=== PATIENT | male | born 1945 | race Caucasian/White ===

== ENCOUNTER 2017-04-10 13:03 | Observation (INO) | payer MEDICARE, MEDICAID ==
[~2017-04-10] VITALS: Ht 180.3 cm; Wt 80.0 kg
[2017-04-10] VITALS (8 sets, daily range): BP systolic 117–186; BP diastolic 58–86; PULSE 45–63; RESP 18–24; TEMP 97.4–98.2; O2SAT 97–100
[~2017-04-10 13:03] MED LIST: ALBU1AER INH; AMIT50 PO; AMLO5 PO; ASPI81 PO; BUPR-197 PO; CLOP75 PO; DULE100A PO; LOSA25 PO; METO50TA PO; NEUR600T PO; PERC10TA27 PO; RANI150T PO; RISP1TAB2 PO; SIMV20TA PO
[2017-04-10] MEDS ORDERED: SODIUM CHLORIDE 0.9% FLUSH 10 ML FLUSH IVF PRN (13:30)
--- NOTE | 2017-04-10 13:30 | PD ---
HPI Chief Complaint: Cardiac Complaint Time Seen by Provider: 13:09 Travel History International Travel<30 days: No Contact w/Intl Traveler<30days: No Traveled to known affect area: No History of Present Illness HPI 72-year-old male presents to the emergency department for syncope. Patient was at Dr. Hidalgo's office being seen for syncope when he had a syncopal episode in the office. He was referred to the emergency department. His is at bedside who states he has been having multiple syncopal episodes every day. This is an issue for approximately a year. He was last admitted in February 2016 for syncope. He had a brain MRI done which showed no acute intracranial abnormality at that visit. Head CT showed no acute abnormality. Patient also had echo which showed ejection fraction of 50%. He is found to be bradycardic and Dr. Oswald Serrano's office with a heart rate of 41. The patient states this is not typical for his heart rate. At this time, he has no complaints. No headache. No fevers or chills. No chest pain. No shortness of breath. No abdominal pain. Nausea, vomiting, diarrhea. PFSH Past Medical History Arthritis: No Blood Disorders: No Bipolar Disorder: Yes Cancer: No Cardiac Catheterization: Yes Cardiovascular Problems: Yes High Cholesterol: Yes Chest Pain: Yes Congestive Heart Failure: Yes Coronary Artery Disease: Yes Diabetes: No Endocrine: No Gastrointestinal Disorders: No GERD: Yes Genitourinary: No Hypertension: Yes Immune Disorder: No Implanted Vascular Access Dvce: No Musculoskeletal: Yes Neurologic: No Psychiatric: Yes (BIPOLAR) Reproductive: No Respiratory: No Myocardial Infarction: Yes Tetanus Vaccination: < 5 Years Influenza Vaccination: Yes Past Surgical History Abdominal Surgery: Yes (APPENDECTOMY) AICD: No Appendectomy: Yes Arteriovenous Shunt: No Body Medical Devices: STERNAL WIRES Cardiac Surgery: Yes (CABG 3 VESSEL, QUADR. BYPASS) Coronary Artery Bypass Graft: Yes (3 VESSEL) Ear Surgery: No Endocrine Surgery: No Eye Surgery: No Genitourinary Surgery: No Gynecologic Surgery: No Insulin Pump: No Joint Replacement: No Oral Surgery: Yes Pacemaker: No Other Surgery: Yes Social History Alcohol Use: No Tobacco Use: Yes (1 PPD) Substance Use: Yes (MARIJUANA) Allergies-Medications (Allergen,Severity, Reaction): Coded Allergies: No Known Allergies (Verified , 04/10/17) Reported Meds & Prescriptions Reported Meds & Active Scripts Active Active Prescriptions or Reported Medications Unobtainable Review of Systems Except as stated in HPI: all other systems reviewed are Neg Physical Exam Narrative GENERAL: Well-nourished, well-developed male patient, afebrile. SKIN: Focused skin assessment warm/dry. HEAD: Normocephalic. Atraumatic. EYES: No scleral icterus. No injection or drainage. NECK: Supple, trachea midline. No JVD or lymphadenopathy. CARDIOVASCULAR: Regular rate without murmurs, gallops, or rubs. Bilateral radial and pedal pulses are 2+. Patient is bradycardic with heart rate in the 40s. RESPIRATORY: Breath sounds equal bilaterally. No accessory muscle use. Lungs sounds are clear to auscultation. GASTROINTESTINAL: Abdomen soft, non-tender, nondistended. MUSCULOSKELETAL: No cyanosis, or edema. Bilateral upper and lower extremity strength 5/5. All extremities are neurovascularly intact. BACK: Nontender without obvious deformity. No CVA tenderness. Data Data Last Documented VS Vital Signs Date Time Temp Pulse Resp B/P (MAP) Pulse Ox O2 Delivery O2 Flow Rate FiO2 04/10/17 13:29 100 Room Air 04/10/17 13:16 45 18 04/10/17 13:06 97.7 Orders Orders Electrocardiogram (04/10/17 ) Electrocardiogram (04/10/17 13:22) Basic Metabolic Panel (Bmp) (04/10/17 13:22) Ckmb (Isoenzyme) Profile (04/10/17 13:22) Complete Blood Count With Diff (04/10/17 13:22) Magnesium (Mg) (04/10/17 13:22) Prothrombin Time / Inr (Pt) (04/10/17 13:22) Act Partial Throm Time (Ptt) (04/10/17 13:22) Troponin I (04/10/17 13:22) Chest, Single Ap (04/10/17 13:22) Ecg Monitoring (04/10/17 13:22) Bilateral Bp Monitoring (04/10/17 13:22) Iv Access Insert/Monitor (04/10/17 13:22) Oximetry (04/10/17 13:22) Oxygen Administration (04/10/17 13:22) Sodium Chloride 0.9% Flush (Ns Flush) (04/10/17 13:30) CKMB (04/10/17 13:25) CKMB% (04/10/17 13:25) Labs Laboratory Tests Test 04/10/17 13:25 White Blood Count 8.7 TH/MM3 Red Blood Count 4.64 MIL/MM3 Hemoglobin 14.2 GM/DL Hematocrit 44.1 % Mean Corpuscular Volume 95.1 FL Mean Corpuscular Hemoglobin 30.6 PG Mean Corpuscular Hemoglobin Concent 32.2 % Red Cell Distribution Width 15.0 % Platelet Count 145 TH/MM3 Mean Platelet Volume 8.8 FL Neutrophils (%) (Auto) 61.6 % Lymphocytes (%) (Auto) 25.0 % Monocytes (%) (Auto) 10.8 % Eosinophils (%) (Auto) 1.9 % Basophils (%) (Auto) 0.7 % Neutrophils # (Auto) 5.3 TH/MM3 Lymphocytes # (Auto) 2.2 TH/MM3 Monocytes # (Auto) 0.9 TH/MM3 Eosinophils # (Auto) 0.2 TH/MM3 Basophils # (Auto) 0.1 TH/MM3 CBC Comment DIFF FINAL Differential Comment Prothrombin Time 10.8 SEC Prothromb Time International Ratio 1.0 RATIO Activated Partial Thromboplast Time 30.3 SEC Blood Urea Nitrogen 14 MG/DL Creatinine 1.33 MG/DL Random Glucose 101 MG/DL Calcium Level 8.7 MG/DL Magnesium Level 2.4 MG/DL Sodium Level 137 MEQ/L Potassium Level 5.4 MEQ/L Chloride Level 109 MEQ/L Carbon Dioxide Level 22.2 MEQ/L Anion Gap 6 MEQ/L Estimat Glomerular Filtration Rate 53 ML/MIN Total Creatine Kinase 111 U/L Creatine Kinase MB 1.4 NG/ML Troponin I LESS THAN 0.02 NG/ML MDM Medical Decision Making Medical Screen Exam Complete: Yes Emergency Medical Condition: Yes Medical Record Reviewed: Yes Interpretation(s) Last Impressions Chest X-Ray 04/10/17 1322 Signed Impressions: Service Date/Time: Monday, April 10, 2017 13:40 - CONCLUSION: 1. No acute cardiopulmonary disease. Dariel Oropeza MD Differential Diagnosis Cardiac arrhythmia versus electrolytes abnormality versus ACS Narrative Course 72-year-old male presents to the emergency department sent by Dr. Hidalgo's office for syncope. His heart rate is sounds being the 40s at this time. He has no complaints. EKG shows sinus bradycardia, heart rate 44. He does have T- wave inversion in lead 1, 2, V4, V5 V6 with ST depression in V4, V5, V6. This does appear unchanged since previous EKG. CBC, BMP, CK, troponin, magnesium, PTT, PT/INR, chest x-ray are ordered and pending. CBC shows no acute abnormality. BMP shows hyperkalemia 5.4, but moderate hemolysis noted, creatinine 1.33. CK is 111. Troponin is less than 0.02. Magnesium is 2.4. Coags show no acute abnormality. Chest x-ray shows no acute cardiopulmonary disease. Dr. Bah accepted admission. Diagnosis Primary Impression: Syncope Qualified Codes: R55 - Syncope and collapse Additional Impression: Bradycardia Admitting Information Admitting Physician Requests: Observation Scripts Unable to Obtain Active Prescriptions or Reported Meds Sherice Colindres Apr 10, 2017 13:30
[2017-04-10 13:40] LABS: AUTOMATED NEUTROPHIL # 5.3 TH/MM3 (1.8-7.7); BASOPHIL # 0.1 TH/MM3 (0-0.2); BASOPHIL % 0.7 % (0.0-2.0); EOSINOPHIL # 0.2 TH/MM3 (0-0.4); EOSINOPHIL % 1.9 % (0.0-4.0); HEMATOCRIT 44.1 % (39.0-51.0); HEMO FLAGS DIFF FINAL; LYMPHOCYTE # 2.2 TH/MM3 (1.0-4.8); MEAN CELL VOLUME 95.1 FL (80.0-100.0); MEAN CORPUSCULAR HEMOGLOBIN 30.6 PG (27.0-34.0); MEAN CORPUSCULAR HGB CONC 32.2 % (32.0-36.0); MONO % 10.8 % (0.0-8.0); NEUT % 61.6 % (16.0-70.0); PLATELET COUNT 145 TH/MM3 (150-450); RED BLOOD COUNT 4.64 MIL/MM3 (4.50-5.90); WHITE BLOOD COUNT 8.7 TH/MM3 (4.0-11.0)
[2017-04-10 13:56] LABS: PROTHROMBIN TIME - PATIENT 10.8 SEC (9.8-11.6)
[2017-04-10 13:59] LABS: APTT (PATIENT) 30.3 SEC (24.3-30.1)
--- NOTE | 2017-04-10 14:05 | RADRPT ---
EXAM DATE/TIME: 04/10/2017 13:40 [facility] COMPARISON: CHEST SINGLE AP, February 28, 2016, 12:54. INDICATIONS : Syncopal episode today. MEDICAL HISTORY : Congestive heart failure. Hypertension. SURGICAL HISTORY : CABG. Discectomy, lumbar. Appendectomy. ENCOUNTER: Initial ACUITY: 1 day PAIN SCORE: 0/10 LOCATION: Bilateral chest FINDINGS: Postsurgical features of prior median sternotomy. Lungs are clear without significant focal pleural o r parenchymal opacities. Cardiomediastinal contours are within normal limits. Bony thorax is intact. CONCLUSION: 1. No acute cardiopulmonary disease. Dariel Oropeza MD on April 10, 2017 at 14:03 Board Certified Radiologist. This report was verified electronically.
[2017-04-10 14:07] LABS: ANION GAP 6 MEQ/L (5-15); BICARBONATE 22.2 MEQ/L (21.0-32.0); BLOOD UREA NITROGEN 14 MG/DL (7-18); CHLORIDE 109 MEQ/L (98-107); CREATINE KINASE 111 U/L (39-308); GLOMERULAR FILTRATION RATE 53 ML/MIN (>89); MAGNESIUM 2.4 MG/DL (1.5-2.5); POTASSIUM 5.4 MEQ/L (3.5-5.1); SODIUM (NA) 137 MEQ/L (136-145)
[2017-04-10 14:20] LABS: CKMB 1.4 NG/ML (0.5-3.6)
--- NOTE | 2017-04-10 14:37 | PD ---
Physical Exam Narrative GENERAL: Well-nourished, well-developed patient. SKIN: Warm and dry. HEAD: Normocephalic and atraumatic. EYES: No injection or drainage. ENT: No nasal drainage noted. NECK: Supple, trachea midline. CARDIOVASCULAR: Bradycardic rate and regular rhythm RESPIRATORY: No increased effort. No accessory muscle use. NEUROLOGICAL: Awake and alert. Moves all extremities. Normal speech. Data Data Last Documented VS Vital Signs Date Time Temp Pulse Resp B/P (MAP) Pulse Ox O2 Delivery O2 Flow Rate FiO2 04/10/17 13:29 100 Room Air 04/10/17 13:16 45 18 04/10/17 13:06 97.7 Orders Orders Electrocardiogram (04/10/17 ) Electrocardiogram (04/10/17 13:22) Basic Metabolic Panel (Bmp) (04/10/17 13:22) Ckmb (Isoenzyme) Profile (04/10/17 13:22) Complete Blood Count With Diff (04/10/17 13:22) Magnesium (Mg) (04/10/17 13:22) Prothrombin Time / Inr (Pt) (04/10/17 13:22) Act Partial Throm Time (Ptt) (04/10/17 13:22) Troponin I (04/10/17 13:22) Chest, Single Ap (04/10/17 13:22) Ecg Monitoring (04/10/17 13:22) Bilateral Bp Monitoring (04/10/17 13:22) Iv Access Insert/Monitor (04/10/17 13:22) Oximetry (04/10/17 13:22) Oxygen Administration (04/10/17 13:22) Sodium Chloride 0.9% Flush (Ns Flush) (04/10/17 13:30) CKMB (04/10/17 13:25) CKMB% (04/10/17 13:25) Labs Laboratory Tests Test 04/10/17 13:25 White Blood Count 8.7 TH/MM3 Red Blood Count 4.64 MIL/MM3 Hemoglobin 14.2 GM/DL Hematocrit 44.1 % Mean Corpuscular Volume 95.1 FL Mean Corpuscular Hemoglobin 30.6 PG Mean Corpuscular Hemoglobin Concent 32.2 % Red Cell Distribution Width 15.0 % Platelet Count 145 TH/MM3 Mean Platelet Volume 8.8 FL Neutrophils (%) (Auto) 61.6 % Lymphocytes (%) (Auto) 25.0 % Monocytes (%) (Auto) 10.8 % Eosinophils (%) (Auto) 1.9 % Basophils (%) (Auto) 0.7 % Neutrophils # (Auto) 5.3 TH/MM3 Lymphocytes # (Auto) 2.2 TH/MM3 Monocytes # (Auto) 0.9 TH/MM3 Eosinophils # (Auto) 0.2 TH/MM3 Basophils # (Auto) 0.1 TH/MM3 CBC Comment DIFF FINAL Differential Comment Prothrombin Time 10.8 SEC Prothromb Time International Ratio 1.0 RATIO Activated Partial Thromboplast Time 30.3 SEC Blood Urea Nitrogen 14 MG/DL Creatinine 1.33 MG/DL Random Glucose 101 MG/DL Calcium Level 8.7 MG/DL Magnesium Level 2.4 MG/DL Sodium Level 137 MEQ/L Potassium Level 5.4 MEQ/L Chloride Level 109 MEQ/L Carbon Dioxide Level 22.2 MEQ/L Anion Gap 6 MEQ/L Estimat Glomerular Filtration Rate 53 ML/MIN Total Creatine Kinase 111 U/L Creatine Kinase MB 1.4 NG/ML Troponin I LESS THAN 0.02 NG/ML [facility] Supervised Visit with LEI: Yes Interpretation(s) CBC & BMP Diagram 04/10/17 13:25 Calcium Level 8.7, Magnesium Level 2.4 Last 24 hours Impressions Chest X-Ray 04/10/17 1322 Signed Impressions: Service Date/Time: Saturday, April 10, 2017 13:40 - CONCLUSION: 1. No acute cardiopulmonary disease. Dariel Oropeza MD EKG shows sinus bradycardia without STEMI criteria Narrative Course I, Dr. lowe, have reviewed the advance practice practitioner's documentation and am in agreement, met with the patient face to face, made the diagnosis, and the medical decision making was done by me. *My assessment and Findings: 72-year-old male status post syncopal event. He is bradycardic here in the 40s but without hypotension. He is on metoprolol so this will need to be held and he'll need to be monitored in the hospital overnight to make sure that this improves and he does not develop other symptoms. He has had syncope before but usually not this bradycardic Diagnosis Primary Impression: Syncope Qualified Codes: R55 - Syncope and collapse Scripts Unable to Obtain Active Prescriptions or Reported Meds Angie Lowe MD Apr 10, 2017 14:37
--- NOTE | 2017-04-10 17:38 | HHI.HP ---
HPI Service [facility] Primary Care Physician Aman Barr, DO Admission Diagnosis syncope, bradycardia Diagnoses: Chief Complaint: SYNCOPE Travel History International Travel<30 Days: No Contact w/Intl Traveler <30 Da: No Traveled to Known Affected Are: No History of Present Illness This a 72-year-old white male with significant past medical history of coronary artery disease, hypertension, hyperlipidemia, COPD. Patient presented to the emergency room for evaluation of syncope. Patient was last admitted to this facility February 2016 for the same, at that time he underwent neuro workup that did not reveal any acute findings, no seizures. He had EEG and echocardiogram. Echo showed EF of 50%. Patient is not a good historian, and indicates that his mind is not working as well. His is having the room and she is providing the rest of the information. They both endorse that patient has been having syncopal episodes for approximately a month, indicates maybe 4-5 a day. Most of the episodes he's had he's been sitting down therefore he hasn't sustained any injuries. Denies any preceding symptoms, indicates he just passes out. There is no loss of bowel or bladder function. After this episode , he feels tired and occasionally fluttering of the chest. States that episodes have been witnessed by Dr. Barr as well as Dr. Quiñones. He went into see Dr. Quiñones approximately a week ago and after he witnessed an episode, referred him to see a circulation clerk. Today while he was at Dr. Hidalgo's office for evaluation he had a syncopal episode and was noted bradycardic with a heart rate of 41. Patient was sent to the emergency room for evaluation. Patient denies any chest pain at this time, he has chronic shortness of breath and wheezing from COPD. EKG completed in the emergency room showed bradycardia with heart rate of 44. CBC was unremarkable. BMP remarkable for hyperkalemia, potassium 5.4. Creatinine 1.33. Troponin negative. Magnesium 2.4. Chest x- ray did not reveal any acute findings. His blood pressure is noted elevated in the 170s although initially was 117/58. Patient denies any fever, no chills. At this time his only complaint is of a headache. Patient is admitted for further evaluation and treatment. Review of Systems ROS Limitations: Poor Historian Constitutional: DENIES: Diaphoretic episodes, Fatigue, Fever, Weight gain, Weight loss, Chills, Dizziness, Change in appetite, Night Sweats Endocrine: DENIES: Heat/cold intolerance, Polydipsia, Polyuria, Polyphagia Eyes: DENIES: Blurred vision, Diplopia, Eye inflammation, Eye pain, Vision loss , Photosensitivity, Double Vision Ears, nose, mouth, throat: DENIES: Tinnitus, Hearing loss, Vertigo, Nasal discharge, Oral lesions, Throat pain, Hoarseness, Ear Pain, Running Nose, Epistaxis, Sinus Pain, Toothache, Odynophagia Respiratory: COMPLAINS OF: Cough, Wheezing, Sputum production, Shortness of breath, DENIES: Apneas, Snoring, Hemoptysis Cardiovascular: COMPLAINS OF: Syncope (MULTIPLE X 1 MONTH, SOMETIMES 3-4 A DAY ), DENIES: Chest pain, Palpitations, Dyspnea on Exertion, PND, Lower Extremity Edema, Orthopnea, Claudication Gastrointestinal: DENIES: Abdominal pain, Black stools, Bloody stools, Constipation, Diarrhea, Nausea, Vomiting, Difficulty Swallowing, Anorexia Genitourinary: DENIES: Sexual dysfunction, Urinary frequency, Urinary incontinence, Urgency, Hematuria, Dysuria, Nocturia, Penile Discharge, Testicular Pain, Testicular Swelling Musculoskeletal: DENIES: Joint pain, Muscle aches, Stiffness, Joint Swelling, Back pain, Neck pain Integumentary: DENIES: Abnormal pigmentation, Nail changes, Pruritus, Rash Hematologic/lymphatic: DENIES: Bruising, Lymphadenopathy Immunologic/allergic: DENIES: Eczema, Urticaria Neurologic: DENIES: Abnormal gait, Headache, Localized weakness, Paresthesias, Seizures, Speech Problems, Tremor, Poor Balance Psychiatric: DENIES: Anxiety, Confusion, Mood changes, Depression, Hallucinations, Agitation, Suicidal Ideation, Homicidal Ideation, Delusions Past Family Social History Past Medical History CAD Previous admissions for syncope, last time was 2015, had neuro workup. Negative for any seizures. Tobacco abuse COPD GERD Hyperlipidemia CHF Bipolar Hypertension Past Surgical History CABG Appendectomy Oral surgery Reported Medications Reported Meds & Active Scripts Active Active Prescriptions or Reported Medications Unobtainable Allergies: Coded Allergies: No Known Allergies (Verified , 04/10/17) Active Ordered Medications Inpatient Medications Albuterol/ Ipratropium (Duoneb Neb) 1 ampule QID NEB NEB ; Start 04/10/17 at 20 :00; Status UNV Famotidine (Pepcid) 40 mg HS PO ; Start 04/10/17 at 21:00; Status UNV Heparin Sodium (Porcine) (Heparin Inj) 5,000 units Q12HR SQ ; Start 04/10/17 at 21:00; Status UNV Miscellaneous Information 1 DAILY T-DERMAL ; Start 04/11/17 at 09:00; Status UNV Nicotine (Habitrol 7 Mg Patch.24 Hr) 1 patch DAILY T-DERMAL ; Start 04/10/17 at 16:30; Status UNV Sodium Chloride 1,000 ml @ 84 mls/hr [id number] IV ; Start 04/10/17 at 16:30; Status UNV Sodium Chloride (NS Flush) 2 ml UNSCH PRN IVF FLUSH AFTER USING IV ACCESS; Start 04/10/17 at 13:30 Family History Reviewed, noncontributory. Social History Patient lives with , has grown children. Smokes 1 pack a day for 50 years, has been trying to cut down. Smokes marijuana occasionally. No alcohol abuse. Physical Exam Vital Signs Vital Signs Date Time Temp Pulse Resp B/P (MAP) Pulse Ox O2 Delivery O2 Flow Rate FiO2 04/10/17 16:30 54 18 165/71 (102) 97 Room Air 04/10/17 13:29 100 Room Air 04/10/17 13:29 117/58 (77) 139/63 (88) 04/10/17 13:16 45 18 139/63 (88) 100 Room Air 04/10/17 13:13 97 Room Air 04/10/17 13:06 97.7 45 24 117/58 (77) 98 Room Air Physical Exam GENERAL: This is a well-nourished, well-developed patient, in no apparent distress. SKIN: No rashes, ecchymoses or lesions. Cool and dry. HEAD: Atraumatic. Normocephalic. No temporal or scalp tenderness. EYES: Pupils equal round and reactive. Extraocular motions intact. No scleral icterus. No injection or drainage. ENT: Nose without bleeding, purulent drainage or septal hematoma. Throat without erythema, tonsillar hypertrophy or exudate. Uvula midline. Airway patent. NECK: Trachea midline. No JVD or lymphadenopathy. Supple, nontender, no meningeal signs. CARDIOVASCULAR: Regular rate and rhythm without murmurs, gallops, or rubs. RESPIRATORY: Diffuse rhonchi and expiratory wheezes. GASTROINTESTINAL: Abdomen soft, non-tender, nondistended. No hepato-splenomegaly , or palpable masses. No guarding. MUSCULOSKELETAL: Extremities without clubbing, cyanosis, or edema. No joint tenderness, effusion, or edema noted. No calf tenderness. Negative Homans sign bilaterally. NEUROLOGICAL: Awake, alert oriented 3. Forgetful. No focal deficits. Laboratory Laboratory Tests Test 04/10/17 13:25 White Blood Count 8.7 Red Blood Count 4.64 Hemoglobin 14.2 Hematocrit 44.1 Mean Corpuscular Volume 95.1 Mean Corpuscular Hemoglobin 30.6 Mean Corpuscular Hemoglobin Concent 32.2 Red Cell Distribution Width 15.0 Platelet Count 145 Mean Platelet Volume 8.8 Neutrophils (%) (Auto) 61.6 Lymphocytes (%) (Auto) 25.0 Monocytes (%) (Auto) 10.8 Eosinophils (%) (Auto) 1.9 Basophils (%) (Auto) 0.7 Neutrophils # (Auto) 5.3 Lymphocytes # (Auto) 2.2 Monocytes # (Auto) 0.9 Eosinophils # (Auto) 0.2 Basophils # (Auto) 0.1 CBC Comment DIFF FINAL Differential Comment Prothrombin Time 10.8 Prothromb Time International Ratio 1.0 Activated Partial Thromboplast Time 30.3 Blood Urea Nitrogen 14 Creatinine 1.33 Random Glucose 101 Calcium Level 8.7 Magnesium Level 2.4 Sodium Level 137 Potassium Level 5.4 Chloride Level 109 Carbon Dioxide Level 22.2 Anion Gap 6 Estimat Glomerular Filtration Rate 53 Total Creatine Kinase 111 Creatine Kinase MB 1.4 Troponin I LESS THAN 0.02 Result Diagram: 04/10/17 1325 04/10/17 1325 Imaging Last Impressions Chest X-Ray 04/10/17 1322 Signed Impressions: Service Date/Time: Monday, April 10, 2017 13:40 - CONCLUSION: 1. No acute cardiopulmonary disease. MD Hugh Sparrow VTE Risk Assessment Suni VTE Risk Assessment: No/Low Risk (score <= 1) Caprini Risk Assessment Model Point Value = 1 Point Value = 2 Point Value = 3 Point Value = 5 Age 41-60 Minor surgery BMI > 25 kg/m2 Swollen legs Varicose veins or History of unexplained or recurrent spontaneous Oral contraceptives or hormone replacement Sepsis (< 1 month) Serious lung disease, including pneumonia (< 1 month) Abnormal pulmonary function Acute myocardial infarction Congestive heart failure (< 1 month) History of inflammatory bowel disease Medical patient at bed rest Age 61-74 Arthroscopic surgery Major open surgery (> 45 min) Laparoscopic surgery (> 45 min) Malignancy Confined to bed (> 72 hours) Immobilizing plaster cast Central venous access Age >= 75 History of VTE Family history of VTE Factor V Leiden Prothrombin [id number] Lupus anticoagulant Anticardiolipin antibodies Elevated serum homocysteine Heparin-induced thrombocytopenia Other congenital or acquired thrombophilia Stroke (< 1 month) Elective arthroplasty Hip, pelvis, or leg fracture Acute spinal cord injury (< 1 month) Prophylaxis Regimen Total Risk Factor Score Risk Level Prophylaxis Regimen 0-1 Low Early ambulation 2 Moderate Order ONE of the following: *Sequential Compression Device (SCD) *Heparin 5000 units SQ BID 3-4 Higher Order ONE of the following medications: *Heparin 5000 units SQ TID *Enoxaparin/Lovenox 40 mg SQ daily (WT < 150 kg, CrCl > 30 mL/min) *Enoxaparin/Lovenox 30 mg SQ daily (WT < 150 kg, CrCl > 10-29 mL/min) *Enoxaparin/Lovenox 30 mg SQ BID (WT < 150 kg, CrCl > 30 mL/min) AND/OR *Sequential Compression Device (SCD) 5 or more Highest Order ONE of the following medications: *Heparin 5000 units SQ TID (Preferred with Epidurals) *Enoxaparin/Lovenox 40 mg SQ daily (WT < 150 kg, CrCl > 30 mL/min) *Enoxaparin/Lovenox 30 mg SQ daily (WT < 150 kg, CrCl > 10-29 mL/min) *Enoxaparin/Lovenox 30 mg SQ BID (WT < 150 kg, CrCl > 30 mL/min) AND *Sequential Compression Device (SCD) Assessment and Plan Problem List: (1) Syncope ICD Codes: R55 - Syncope and collapse Status: Acute (2) Bradycardia ICD Codes: R00.1 - Bradycardia, unspecified Status: Acute (3) COPD (chronic obstructive pulmonary disease) ICD Codes: J44.9 - Chronic obstructive pulmonary disease, unspecified Status: Chronic (4) CAD (coronary artery disease) ICD Codes: I25.10 - Atherosclerotic heart disease of [place] coronary artery without angina pectoris Status: Chronic (5) Tobacco abuse ICD Codes: Z72.0 - Tobacco use Status: Chronic (6) Hyperkalemia ICD Codes: E87.5 - Hyperkalemia Status: Acute (7) Renal insufficiency ICD Codes: N28.9 - Disorder of kidney and ureter, unspecified Status: Chronic Assessment and Plan Admit to Dr. Bah 72-year-old male admitted with recurrent syncopal episodes, now noted with bradycardia. Symptomatic bradycardia Recurrent syncope -Continuous cardiac telemetry -Consult cardiology for evaluation -We'll hold any beta blockers, at this time we don't have his home medication list to review. -Continue with cautious hydration Hypotension initially, now blood pressure trending up. -Continue to monitor blood pressure closely, will not initiate any medications at this time. COPD Tobacco abuse -Tobacco abuse counseling, patient agreeable with nicotine patch -DuoNeb's 4 times a day Hyperkalemia Renal insufficiency -Repeat BMP in the morning -Continue with cautious hydration Coronary artery disease History of CABG -Continuous cardiac telemetry -Cardiology consultation Nursing is to complete medication reconciliation Pepcid for GI prophylaxis Heparin for DVT prophylaxis Plan of care has been discussed with the patient and his , RN and attending. Further management of the patient will be dependent on the hospital course This patient was seen by myself and Dr. Bah, this consultation is written on his behalf Problem Qualifiers (1) Syncope: Qualified Codes: R55 - Syncope and collapse (2) COPD (chronic obstructive pulmonary disease): Qualified Codes: J44.9 - Chronic obstructive pulmonary disease, unspecified (3) CAD (coronary artery disease): Qualified Codes: I25.10 - Atherosclerotic heart disease of [place] coronary artery without angina pectoris Neeru eNwman Apr 10, 2017 17:38
[2017-04-10] MEDS: SODIUM CHLOR 0.9% 1000 ML INJ 1,000 ML IV SCH (18:19)
[2017-04-10] MEDS: NICOTINE 7 MG/24 HR PATCH T-DERMAL SCH (18:20)
[2017-04-10] MEDS ORDERED: DOXE25CA2 PO (18:40)
[2017-04-10] MEDS ORDERED: MONT10TA4 PO (18:40)
[2017-04-10] MEDS ORDERED: OMEP40CA2 PO (18:40)
[2017-04-10] MEDS ORDERED: ATOR20TA15 PO (18:40)
[2017-04-10] MEDS ORDERED: AMLO5TAB2 PO (18:40)
[2017-04-10] MEDS ORDERED: RANI150T PO (18:40)
[2017-04-10] MEDS ORDERED: RISP1 PO (18:40)
[2017-04-10] MEDS ORDERED: GABA600T PO (18:40)
[2017-04-10] MEDS ORDERED: LOSA25TA PO (18:40)
[2017-04-10] MEDS ORDERED: ASPI81CH CHEW (18:40)
[2017-04-10] MEDS ORDERED: PLAV75TA29 PO (18:40)
[2017-04-10] MEDS ORDERED: BUPR100T4 PO (18:40)
[2017-04-10] MEDS ORDERED: AMIT50TA3 PO (18:40)
[2017-04-10] MEDS ORDERED: METO50TA PO (18:40)
[2017-04-10] MEDS ORDERED: PERC10TA27 PO (18:40)
[2017-04-10] MEDS ORDERED: ALBUAER3 INH (18:40)
[2017-04-10] MEDS ORDERED: DONE1TAB90 PO (18:40)
[2017-04-10] MEDS: RESP: ALBUTEROL 2.5 MG/IPRATROPIUM 0.5 MG NEB (SCH) NEB (19:57)
[2017-04-10] MEDS: HEPARIN SODIUM - SQ 10,000 UNITS/ML VIAL SQ SCH (20:36)
[2017-04-10] MEDS ORDERED: FAMOTIDINE 20 MG TAB PO SCH (21:00)
[2017-04-10] MEDS: oxyCODONE/ACETAMINOPHEN 5 MG/325 MG TAB PO PRN (23:51)
[2017-04-11] VITALS (8 sets, daily range): BP systolic 169–196; BP diastolic 74–81; PULSE 56–91; RESP 16–20; TEMP 97.6–98; O2SAT 96–99
[2017-04-11 05:58] LABS: BICARBONATE 24.6 MEQ/L (21.0-32.0); POTASSIUM 3.8 MEQ/L (3.5-5.1)
[2017-04-11] MEDS: SODIUM CHLOR 0.9% 1000 ML INJ 1,000 ML IV SCH (05:58)
[2017-04-11] MEDS: RESP: ALBUTEROL 2.5 MG/IPRATROPIUM 0.5 MG NEB (SCH) NEB ×2 (07:32→12:12)
--- NOTE | 2017-04-11 08:37 | HHI.PR ---
Subjective Remarks no dizziness no cp no sob wheezing, cough no acute changes overnight tele reviewed, SR BP 180s Objective Objective Results - Vital Signs Date Time Temp Pulse Resp B/P (MAP) Pulse Ox O2 Delivery O2 Flow Rate FiO2 04/11/17 07:46 97.6 67 19 187/78 (114) 96 04/11/17 04:00 63 04/11/17 03:30 98.0 67 18 174/76 (108) 97 04/11/17 00:00 56 04/10/17 23:42 98.2 60 18 178/74 (108) 97 04/10/17 20:00 63 04/10/17 18:36 97.4 61 18 186/76 (112) 97 04/10/17 18:06 56 17 163/86 (111) 99 04/10/17 16:30 54 18 165/71 (102) 97 Room Air 04/10/17 13:29 100 Room Air 04/10/17 13:29 117/58 (77) 139/63 (88) 04/10/17 13:16 45 18 139/63 (88) 100 Room Air 04/10/17 13:13 97 Room Air 04/10/17 13:06 97.7 45 24 117/58 (77) 98 Room Air Result Diagram: 04/10/17 1325 04/11/17 0437 Imaging Last Impressions Chest X-Ray 04/10/17 1322 Signed Impressions: Service Date/Time: Monday, April 10, 2017 13:40 - CONCLUSION: 1. No acute cardiopulmonary disease. Dariel Oropeza MD Other Results Laboratory Tests Test 04/10/17 13:25 04/10/17 19:58 04/11/17 04:37 White Blood Count 8.7 Red Blood Count 4.64 Hemoglobin 14.2 Hematocrit 44.1 Mean Corpuscular Volume 95.1 Mean Corpuscular Hemoglobin 30.6 Mean Corpuscular Hemoglobin Concent 32.2 Red Cell Distribution Width 15.0 Platelet Count 145 Mean Platelet Volume 8.8 Neutrophils (%) (Auto) 61.6 Lymphocytes (%) (Auto) 25.0 Monocytes (%) (Auto) 10.8 Eosinophils (%) (Auto) 1.9 Basophils (%) (Auto) 0.7 Neutrophils # (Auto) 5.3 Lymphocytes # (Auto) 2.2 Monocytes # (Auto) 0.9 Eosinophils # (Auto) 0.2 Basophils # (Auto) 0.1 CBC Comment DIFF FINAL Differential Comment Prothrombin Time 10.8 Prothromb Time International Ratio 1.0 Activated Partial Thromboplast Time 30.3 Blood Urea Nitrogen 14 13 Creatinine 1.33 1.20 Random Glucose 101 83 Calcium Level 8.7 7.7 Magnesium Level 2.4 Sodium Level 137 141 Potassium Level 5.4 3.8 Chloride Level 109 110 Carbon Dioxide Level 22.2 24.6 Anion Gap 6 6 Estimat Glomerular Filtration Rate 53 60 Total Creatine Kinase 111 Creatine Kinase MB 1.4 Troponin I LESS THAN 0.02 0.02 0.03 ROS General: No: Fatigue, Weakness HEENT: No: Sore Throat, Dysphagia Cardiac: No: Chest Pain, Edema, Palpitations Pulmonary: Cough, SOB, Wheezing GI: No: Abdominal Pain, BM, Diarrhea, N/V /AXLE TURNER: No: Dysuria, Urgency Neuro/MS: No: Lightheaded, Confusion Psych: No: Anxiety, Depression Skin: No: Itching, Rash Physical Exam Physical Exam GENERAL: This is a well-nourished, well-developed patient, in no apparent distress. SKIN: No rashes, ecchymoses or lesions. Cool and dry. HEAD: Atraumatic. Normocephalic. No temporal or scalp tenderness. EYES: Pupils equal round and reactive. Extraocular motions intact. No scleral icterus. No injection or drainage. ENT: Nose without bleeding, purulent drainage or septal hematoma. Throat without erythema, tonsillar hypertrophy or exudate. Uvula midline. Airway patent. NECK: Trachea midline. No JVD or lymphadenopathy. Supple, nontender, no meningeal signs. CARDIOVASCULAR: Regular rate and rhythm without murmurs, gallops, or rubs. RESPIRATORY: Diffuse rhonchi and expiratory wheezes. GASTROINTESTINAL: Abdomen soft, non-tender, nondistended. No hepato-splenomegaly , or palpable masses. No guarding. MUSCULOSKELETAL: Extremities without clubbing, cyanosis, or edema. No joint tenderness, effusion, or edema noted. No calf tenderness. Negative Homans sign bilaterally. NEUROLOGICAL: Awake, alert oriented 3. Forgetful. No focal deficits. Urinary Catheter: No Vascular Central Line Catheter: No A/P Diagnosis: (1) Syncope ICD Codes: R55 - Syncope and collapse Status: Acute (2) Bradycardia ICD Codes: R00.1 - Bradycardia, unspecified Status: Acute (3) COPD (chronic obstructive pulmonary disease) ICD Codes: J44.9 - Chronic obstructive pulmonary disease, unspecified Status: Chronic (4) CAD (coronary artery disease) ICD Codes: I25.10 - Atherosclerotic heart disease of [place] coronary artery without angina pectoris Status: Chronic (5) Tobacco abuse ICD Codes: Z72.0 - Tobacco use Status: Chronic (6) Hyperkalemia ICD Codes: E87.5 - Hyperkalemia Status: Acute (7) Renal insufficiency ICD Codes: N28.9 - Disorder of kidney and ureter, unspecified Status: Chronic Assessment and Plan 72-year-old male admitted with recurrent syncopal episodes, now noted with bradycardia. Symptomatic bradycardia Recurrent syncope -Continuous cardiac telemetry -Consult cardiology for evaluation-pending -hold BB -DC IVF, no longer hypotensive. BP up. No bradycardia observed. -will check EEG, CUS, echo Hypotension initially, now blood pressure trending up. -BP now elevated, restart home meds COPD Tobacco abuse -Tobacco abuse counseling, patient agreeable with nicotine patch -DuoNeb's 4 times a day Hyperkalemia Renal insufficiency -Repeat BMP in the morning -Continue with cautious hydration Coronary artery disease History of CABG -Continuous cardiac telemetry -Cardiology consultation Pepcid for GI prophylaxis Heparin for DVT prophylaxis will wait for card input D/W RN D/W Dr. Bah D/W pt This patient was seen by myself and Dr. Bah, this note is written on his behalf Problem Qualifiers (1) Syncope: Qualified Codes: R55 - Syncope and collapse (2) COPD (chronic obstructive pulmonary disease): Qualified Codes: J44.9 - Chronic obstructive pulmonary disease, unspecified (3) CAD (coronary artery disease): Qualified Codes: I25.10 - Atherosclerotic heart disease of [place] coronary artery without angina pectoris Neeru Newman Apr 11, 2017 08:37
--- NOTE | 2017-04-11 08:38 | EKG ---
Date Performed: 04/10/2017 Time Performed: 13:18:15 PTAGE: 72 years EKG: SINUS BRADYCARDIA ST/T-WAVE ABNORMALITY, CONSIDER INFERIOR AND LATERAL ISCHEMIA ABNORMAL EC G PREVIOUS TRACING : 02/28/2016 12.38 No significant change from previous tracing noted. DOCTOR: Saman Adan Interpretating Date/Time 04/11/2017 08:37:12
[2017-04-11] MEDS ORDERED: oxyCODONE/ACETAMINOPHEN 10 MG/325 MG TAB PO PRN (08:45)
[2017-04-11] MEDS ORDERED: GABAPENTIN 300 MG CAP PO SCH (09:00)
[2017-04-11] MEDS ORDERED: buPROPion HCL 100 MG TAB PO SCH (09:00)
[2017-04-11] MEDS ORDERED: amLODIPine BESYLATE 5 MG TAB PO SCH (09:00)
[2017-04-11] MEDS ORDERED: REMOVE OLD PATCH T-DERMAL SCH (09:00)
[2017-04-11] MEDS ORDERED: CLOPIDOGREL 75 MG TAB PO SCH (09:00)
[2017-04-11] MEDS ORDERED: ASPIRIN 81 MG CHEW TAB CHEW SCH (09:00)
[2017-04-11] MEDS ORDERED: ALBUTEROL SULFATE 90 MCG/ACT HFA 18 GM INHALER INH PRN (09:15)
[2017-04-11] MEDS ORDERED: LOSARTAN 25 MG TAB PO SCH (09:15)
[2017-04-11] MEDS ORDERED: risperiDONE 1 MG TAB PO SCH (09:30)
[2017-04-11] MEDS ORDERED: PANTOPRAZOLE SOD 40 MG DELAYED RELEASE TAB PO SCH (09:30)
[2017-04-11] MEDS: HEPARIN SODIUM - SQ 10,000 UNITS/ML VIAL SQ SCH (09:37)
[2017-04-11] MEDS: NICOTINE 7 MG/24 HR PATCH T-DERMAL SCH (09:38)
--- NOTE | 2017-04-11 12:34 | MG ---
cc: SILVINO ZAPATA Lab No: Date: 04/11/2017 Age: 72 Sex: M Race: DATE OF 1945 MEDICAL HISTORY Multiple syncopal episodes, chronic; was found to be bradycardic in the Dr's. Office. Congestive heart failure. Hypertension. Chest pain. Hypercholesterolemia. Bipolar. Caffeine and tobacco use. Coronary artery bypass graft. Substance abuse. MEDICATIONS 1. Risperdal. 2. Protonix. 3. Cozaar. 4. Aspirin. 5. Wellbutrin. 6. Plavix. 7. Oxycodone. 8. Heparin. 9. Nicotine. DESCRIPTION The background activity is 6-7 Hz theta. During the recording there was transitioning to Stage I sleep. Hyperventilation did not make a change in the EEG. Photic stimulation did not elicit a driving response. There were no electrographic seizures or epileptiform discharges noted during the recording. INTERPRETATION This is a normal awake EEG. There is background slowing that may indicate a mild encephalopathy. No electrographic seizures, ictal activity or epileptiform discharges were seen. Clinical correlation is recommended. MD JOVANNA Carey/JANETH /12:02 PM /12:28 PM LUIS
--- NOTE | 2017-04-11 12:53 | PD.CONS ---
[facility] Service Cardiology Physicians Consult Requested By Dr. Bah Reason for Consult Syncope, bradycardia Primary Care Physician Aman Barr, DO History of Present Illness The patient is a 72 year old male, who is a poor historian, who came to our office yesterday as a cardiac consult for recurrent syncope. During the interview the the patient slumped forward with LOC. He maintained a pulse. He was unconscious for approximately 15 seconds. When his regained consciousness, he did was not confused. There was no tonic-clonic activity, jerking or incontinence. The patient's HR was 41 bpm and SBP 100 mmHg prior to the episode. He admitted to [facility] prior to the event. Since admission, metoprolol was held. His HR increased. He is now hypertensive. Since admission, the states that he has had recurrent syncopal episodes. These episodes have not been witnessed by the RN. No cardiac arrhythmias or pauses identified on cardiac telemetry. On review of his medical record, the patient has had extensive workup since 2012 for recurrent syncope. To date, no cardiac source has been identified. Review of Systems ROS Limitations: Poor Historian Cardiovascular: COMPLAINS OF: Syncope Past Family Social History Allergies: Coded Allergies: No Known Allergies (Verified , 04/10/17) Past Medical History ASHD Ischemic cardiomyopathy HTN Carotid stenosis COPD Mental health disease Past Surgical History CABG Cardiac cath 2012 EP study 2013 lumbar surgery Reported Medications Reported Meds & Active Scripts Active Reported Percocet (Oxycodone-Acetaminophen) 10-325 mg Tab 1 Tab PO Q4H PRN Proair Hfa 8.5 GM Inh (Albuterol Sulfate) 90 Mcg/Act Aer 2 Puff INH Q6H PRN 108 mcg/actuation Risperdal (Risperidone) 1 Mg Tab 1 Mg PO DAILY Gabapentin 600 Mg Tab 600 Mg PO BID Amitriptyline (Amitriptyline HCl) 50 Mg Tab 50 Mg PO HS Metoprolol Tartrate 50 Mg Tab 50 Mg PO BID Amlodipine (Amlodipine Besylate) 5 Mg Tab 5 Mg PO DAILY Losartan (Losartan Potassium) 25 Mg Tab 25 Mg PO DAILY Montelukast (Montelukast Sodium) 10 Mg Tab 10 Mg PO HS Omeprazole 40 Mg Cap 40 Mg PO DAILY Ranitidine (Ranitidine HCl) 150 Mg Tab 150 Mg PO HS Donepezil Hydrochloride 5 Mg Tab 10 Mg PO HS Bupropion HCl 100 Mg Tab 100 Mg PO DAILY Doxepin (Doxepin HCl) 25 Mg Cap 10 Mg PO HS Atorvastatin (Atorvastatin Calcium) 20 Mg Tab 20 Mg PO HS Aspirin 81 Mg Chew 81 Mg CHEW DAILY Plavix (Clopidogrel Bisulfate) 75 Mg Tab 75 Mg PO DAILY Active Ordered Medications Current Medications Medications (Trade) Dose Ordered Sig/Lizandro Route Start Time Stop Time Status Last Admin (NS Flush) 2 ml UNSCH PRN IVF 04/10/17 13:30 (Duoneb Neb) 1 ampule QID NEB NEB 04/10/17 20:00 04/11/17 12:12 (Habitrol 7 Mg Patch.24 Hr) 1 patch DAILY T-DERMAL 04/10/17 16:30 04/11/17 09:38 Miscellaneous Information 1 DAILY T-DERMAL 04/11/17 09:00 04/11/17 09:00 (Heparin Inj) 5,000 units Q12HR SQ 04/10/17 21:00 04/11/17 09:37 (Percocet 5-325 Mg) 1 tab Q6H PRN PO 04/10/17 23:30 04/10/17 23:51 (Ventolin Hfa Inh) 2 puff Q6H PRN INH 04/11/17 09:15 (Elavil) 50 mg HS PO 04/11/17 21:00 (Norvasc) 5 mg DAILY PO 04/11/17 09:00 04/11/17 09:40 (Aspirin Chew) 81 mg DAILY CHEW 04/11/17 09:00 04/11/17 09:39 (Lipitor) 20 mg HS PO 04/11/17 21:00 (Wellbutrin) 100 mg DAILY PO 04/11/17 09:00 04/11/17 10:48 (Plavix) 75 mg DAILY PO 04/11/17 09:00 04/11/17 09:40 (Aricept) 10 mg HS PO 04/11/17 21:00 (SINEquan) 10 mg HS PO 04/11/17 21:00 (Neurontin) 600 mg BID PO 04/11/17 09:00 04/11/17 09:40 (Cozaar) 25 mg DAILY PO 04/11/17 09:15 04/11/17 09:40 (Singulair) 10 mg HS PO 04/11/17 21:00 (risperDAL) 1 mg DAILY PO 04/11/17 09:30 04/11/17 10:47 (Protonix) 40 mg DAILY PO 04/11/17 09:30 04/11/17 09:39 (Pepcid) 20 mg HS PO 04/11/17 21:00 Family History non contributory Social History former smoker lives with Physical Exam Vital Signs Vital Signs Date Time Temp Pulse Resp B/P (MAP) Pulse Ox O2 Delivery O2 Flow Rate FiO2 04/11/17 11:47 97.8 62 20 196/81 (119) 96 04/11/17 09:00 69 04/11/17 07:46 97.6 67 19 187/78 (114) 96 04/11/17 04:00 63 04/11/17 03:30 98.0 67 18 174/76 (108) 97 04/11/17 00:00 56 04/10/17 23:42 98.2 60 18 178/74 (108) 97 04/10/17 20:00 63 04/10/17 18:36 97.4 61 18 186/76 (112) 97 04/10/17 18:06 56 17 163/86 (111) 99 04/10/17 16:30 54 18 165/71 (102) 97 Room Air 04/10/17 13:29 100 Room Air 04/10/17 13:29 117/58 (77) 139/63 (88) 04/10/17 13:16 45 18 139/63 (88) 100 Room Air 04/10/17 13:13 97 Room Air 04/10/17 13:06 97.7 45 24 117/58 (77) 98 Room Air Physical Exam GENERAL: Elderly male, at bedside SKIN: Warm and dry. HEAD: Atraumatic. Normocephalic. EYES: Pupils equal and round. No scleral icterus. No injection or drainage. ENT: No nasal bleeding or discharge. Mucous membranes pink and moist. NECK: Trachea midline. No JVD. CARDIOVASCULAR: Bradycardia, regular rhythm RESPIRATORY: No accessory muscle use. Breath sounds equal bilaterally. GASTROINTESTINAL: Abdomen soft, non-tender, nondistended. MUSCULOSKELETAL: Extremities without clubbing, cyanosis, or edema. NEUROLOGICAL: Awake and alert. Motor grossly within normal limits. Normal speech. PSYCHIATRIC: Flat affect, seems a little confused. "i cant remember anything" Laboratory Laboratory Tests Test 04/10/17 13:25 04/10/17 19:58 04/11/17 04:37 White Blood Count 8.7 Red Blood Count 4.64 Hemoglobin 14.2 Hematocrit 44.1 Mean Corpuscular Volume 95.1 Mean Corpuscular Hemoglobin 30.6 Mean Corpuscular Hemoglobin Concent 32.2 Red Cell Distribution Width 15.0 Platelet Count 145 Mean Platelet Volume 8.8 Neutrophils (%) (Auto) 61.6 Lymphocytes (%) (Auto) 25.0 Monocytes (%) (Auto) 10.8 Eosinophils (%) (Auto) 1.9 Basophils (%) (Auto) 0.7 Neutrophils # (Auto) 5.3 Lymphocytes # (Auto) 2.2 Monocytes # (Auto) 0.9 Eosinophils # (Auto) 0.2 Basophils # (Auto) 0.1 CBC Comment DIFF FINAL Differential Comment Prothrombin Time 10.8 Prothromb Time International Ratio 1.0 Activated Partial Thromboplast Time 30.3 Blood Urea Nitrogen 14 13 Creatinine 1.33 1.20 Random Glucose 101 83 Calcium Level 8.7 7.7 Magnesium Level 2.4 Sodium Level 137 141 Potassium Level 5.4 3.8 Chloride Level 109 110 Carbon Dioxide Level 22.2 24.6 Anion Gap 6 6 Estimat Glomerular Filtration Rate 53 60 Total Creatine Kinase 111 Creatine Kinase MB 1.4 Troponin I LESS THAN 0.02 0.02 0.03 Result Diagram: 04/10/17 1325 04/11/17 0437 Imaging Last 72 hours Impressions Chest X-Ray 04/10/17 1322 Signed Impressions: Service Date/Time: Monday, April 10, 2017 13:40 - CONCLUSION: 1. No acute cardiopulmonary disease. Dariel Oropeza MD Assessment and Plan Assessment and Plan Recurrent syncope Iatrogenic bradycardia ASHD s/p CABG and coronary stents. Carotid stenosis HTN Ischemic CMP. echo 04/10/2017 EF 52% COPD Mental health disease PLAN: Continue to hold metoprolol due to bradycardia. This does not seen to be the cause of the recurrent episodes of syncope/LOC. He was recently evaluated by Dr Quiñones who was pending MRI brain, MRA brain and neck, PSG and EEG. The patient will need to follow up with Dr. Quiñones. Dr Cutler will see the patient tomorrow. The patient was seen and evaluated by Dr Hidalgo who completed face to face encounter, completed physical exam and participated in evaluation and management. Bekah Davis Apr 11, 2017 12:53
[2017-04-11] MEDS: oxyCODONE/ACETAMINOPHEN 5 MG/325 MG TAB PO PRN (13:21)
--- NOTE | 2017-04-11 14:46 | RADRPT ---
EXAM DATE/TIME: 04/11/2017 12:39 [facility] COMPARISON: No previous studies available for comparison. INDICATIONS : Syncope. MEDICAL HISTORY : Chronic obstructive pulmonary disease. Renal insufficiency, chronic. Congestive heart failure. Syncop e. Bradycardia. Coronary artery disease. Myocardial infarction. Hypercholesterolemia. Hypertension. G astroesophageal reflux disease. Bipolar disorder. SURGICAL HISTORY : CABG. Appendectomy. Coronary artery stent. Back surgery. Right knee surgery. Left ankle surgery. ENCOUNTER: Subsequent ACUITY: > 1 year PAIN SCORE: 0/10 LOCATION: Bilateral neck PEAK SYSTOLIC VELOCITIES (cm/sec): ICA/CCA RATIO: Right: 1.8 Left: 1.2 ICA: Right: 173 Left: 203 CCA: Right: 96 Left: 165 ECA: Right: 291 Left: 236 VERTEBRAL: Right: 93 antegrade Left: 79 antegrade Elevated flow velocities and ICA/CCA ratios have been found to correlate with increased degrees of vessel stenosis, calculated as percentage of diameter relative to a normal segment of distal ICA/CCA FINDINGS: Antegrade flow is seen in both vertebral arteries. There is moderate atherosclerotic plaquing at the origin of both ICAs without any significant stenosis. CONCLUSION: No evidence for hemodynamically significant stenosis. Andre Vance MD on April 11, 2017 at 14:44 Board Certified Radiologist. This report was verified electronically.
--- NOTE | 2017-04-11 16:24 | PD.AMA ---
Against Medical Advice Note Discharge Disposition: Against Medical Advice Pt Condition on Discharge: Fair AMA Statement Patient Spencer Casillas has decided to leave the hospital against medical advice. This patient has the capacity to refuse care and understands the risks of leaving, including permanent disability and/or , and has had an opportunity to ask questions about his condition. The patient has been informed that he may return for care at any time, and follow up has been arranged/advised. Neeru Newman [facility] Apr 11, 2017 16:24
[2017-04-11] MEDS ORDERED: ATORVASTATIN 20 MG TAB PO SCH (21:00)
[2017-04-11] MEDS ORDERED: AMITRIPTYLINE HCL 50 MG TAB PO SCH (21:00)
[2017-04-11] MEDS ORDERED: FAMOTIDINE 20 MG TAB PO SCH (21:00)
[2017-04-11] MEDS ORDERED: DOXEPIN HCL 10 MG CAP PO SCH (21:00)
[2017-04-11] MEDS ORDERED: DONEPEZIL HCL 5 MG TAB PO SCH (21:00)
[2017-04-11] MEDS ORDERED: MONTELUKAST SODIUM 10 MG TAB PO SCH (21:00)
== END 2017-04-11 17:06 ==
LOC: NEPE 13:03 → NEDA 14:36 → NEPFCDU 17:48
PROVIDERS: ADMIT Specialist; ATTEND Specialist
DX: R55 Syncope and collapse (principal); R00.1 Bradycardia, unspecified; I25.10 Atherosclerotic heart disease of native coronary artery without angina pectoris; I65.29 Occlusion and stenosis of unspecified carotid artery; I10 Essential (primary) hypertension; J44.0 Chronic obstructive pulmonary disease with (acute) lower respiratory infection; Z95.5 Presence of coronary angioplasty implant and graft; Z95.1 Presence of aortocoronary bypass graft
CPT/HCPCS: 71010; 80048; 82550; 82552; 83735; 84484; 85025; 85610; 85730; 93005; 93880; 94640; 94664; 95819; 96360; 96372; 97162; 99285; G0378; G8987; G8988; J1644; J7030